=== PATIENT | female | born 1940 | race Caucasian/White ===

== ENCOUNTER 2018-02-01 11:43 | Emergency (ER) | payer MEDICARE, OTHER ==
[2018-02-01 13:09] VITALS: BP 156/79
[2018-02-01 13:17] LABS: CHLORIDE,CL 103 mmol/L (98-107); SODIUM,NA 142 mmol/L (136-145)
--- NOTE | 2018-02-01 13:29 | EDM.PDOC ---
ED HPI GENERAL MEDICAL PROBLEM - General Chief Complaint: General Stated Complaint: neck pain Time Seen by Provider: 02/01/18 12:15 Source of Information: Reports: Patient, Other (Regular provider) History Limitations: Reports: No Limitations - History of Present Illness INITIAL COMMENTS - FREE TEXT/NARRATIVE: Patient came to the ER after she briefly felt off-balance while trying to get out of the car by their bank. She felt like she wanted to "turn in a [place]" for a few seconds then sensation went away. Has had chronic neck/occipital pain for several months and that was acting up around the same time. Complains of worsening neck pain/tightness. No other changes. After speaking with the patient, and subsequently her primary provider, patient has had a very extensive workup regarding the neck pain. Work up has included head CT, neck MRI, as well as referral to Neuro at [place] and a pain clinic. She has had no specific unusual findings. Had brief relief of pain from injection at pain clinic, and from oral prednisone. Pain however quickly returned. Chiropractic manipulation has been of no help. No other acute changes. Pain is essentially the same as it has been. In past it was usually one sided, but now it is on both sides of the neck. No numbness/tingling/weakness of limbs. No trauma history prior to pain starting. No dizziness/visual changes. No other acute changes/complaints. Patient unable to remember any of her medications. Unable to tell us if she took her meds this morning. Primary provider does have concerns regarding onset of cognitive impairment. Treatments LITIGATION COORDINATOR: Reports: Acetaminophen Neck Pain Score (Numeric/FACES): 9 - Related Data Allergies Allergy/AdvReac Type Severity Reaction Status Date / Time No Known Allergies Allergy Verified 03/06/15 07:29 Home Meds: Home Meds Aspirin [Adult Low Dose Aspirin EC] 81 mg PO DAILY 02/01/18 [History] Cholecalciferol (Vitamin D3) [Vitamin D3] 800 units PO DAILY 02/01/18 [History] Cyclobenzaprine [Flexeril] 10 mg PO TID PRN 02/01/18 [History] Gabapentin [Neurontin] 200 mg PO TID 02/01/18 [History] Insulin Detemir [Levemir] 38 unit SUBCUT DAILY 02/01/18 [History] Magnesium Glycinate [Mag Glycinate] 200 mg PO DAILY #60 tablet 02/01/18 [Rx] Rosuvastatin [Crestor] 20 mg PO DAILY 02/01/18 [History] Vit C/Vit E Ac/Lut/Mineral 1 [Prosight with Lutein] 1 cap PO DAILY 02/01/18 [ History] Vitamin D3/Vitamin K2 [D3 + K2 Dots 1,000 Unit] 2 each PO DAILY #60 tab.rapdis 02/01/18 [Rx] Past Medical History HEENT History: Reports: Impaired Vision Neurological History: Reports: Migraines Endocrine/Metabolic History: Reports: Diabetes, Type II - Past Surgical History HEENT Surgical History: Reports: Tonsillectomy Neurological Surgical History: Reports: Vertebroplasty Other Neurological Surgeries/Procedures: 2012 Social & Family History - Family History Family Medical History: Noncontributory - Tobacco Use Smoking Status *Q: Never Smoker Second Hand Smoke Exposure: No - Caffeine Use Caffeine Use: Reports: Coffee - Alcohol Use Days Per Week of Alcohol Use: 0 - Recreational Drug Use Recreational Drug Use: No ED ROS GENERAL - Review of Systems Review Of Systems: See Below Constitutional: Reports: No Symptoms HEENT: Reports: No Symptoms. Denies: Ear Pain, Vertigo, Vision Change Respiratory: Reports: No Symptoms Cardiovascular: Reports: No Symptoms. Denies: Lightheadedness GI/Abdominal: Reports: No Symptoms : Reports: No Symptoms Musculoskeletal: Reports: Neck Pain Skin: Reports: No Symptoms Neurological: Reports: Difficulty Walking (per HPI). Denies: Dizziness, Numbness, Paresthesia, Seizure, Syncope, Tingling, Tremors, Trouble Speaking, Weakness, Change in Speech Psychiatric: Reports: No Symptoms Hematologic/Lymphatic: Reports: No Symptoms ED EXAM, GENERAL - Physical Exam Exam: See Below Exam Limited By: No Limitations General Appearance: Alert, WD/WN, No Apparent Distress Eye Exam: Bilateral Eye: EOMI, PERRL Ears: Normal External Exam, Normal TMs Nose: No: Nasal Deformity, Nasal Swelling, Nasal Drainage Throat/Mouth: Normal Lips, Normal Voice, No Airway Compromise. No: Normal Inspection Head: Atraumatic, Normocephalic Neck: Supple, Full Range of Motion, Tender Lateral (right posterior neck muscles (tighness noted)). No: Lymphadenopathy (L), Lymphadenopathy (R), Tender Midline Respiratory/Chest: No Respiratory Distress, Lungs Clear, Normal Breath Sounds, No Accessory Muscle Use Cardiovascular: Regular Rate, Rhythm, No Murmur Peripheral Pulses: 2+: Radial (L), Radial (R) GI/Abdominal: Soft, Non-Tender (Female) Exam: Deferred Rectal (Female) Exam: Deferred Back Exam: No: CVA Tenderness (L), Paraspinal Tenderness, Vertebral Tenderness Extremities: Normal Range of Motion (for age), Non-Tender, Normal Capillary Refill Neurological: Alert, Oriented, CN II-XII Intact, Normal Cognition, Normal Reflexes, Other (Equal strength limbs. ) Psychiatric: Normal Affect, Normal Mood Skin Exam: Warm, Dry, Intact, Normal Color Course - Vital Signs Last Recorded V/S: Last Vital Signs Temp 36.5 C 02/01/18 11:59 Pulse 82 02/01/18 13:08 Resp 18 02/01/18 13:08 BP 156/79 H 02/01/18 13:08 Pulse Ox 100 02/01/18 13:08 - Orders/Labs/Meds Orders: Active Orders 24 hr Category Date Time Status COMPREHENSIVE METABOLIC PN,CMP [CHEM] Stat Lab 02/01/18 12:16 Ordered MG [MAGNESIUM] [CHEM] Stat Lab 02/01/18 12:16 Ordered VITAMIN B12 [CHEM] Stat Lab 02/01/18 12:16 Ordered VITAMIN D,25-HYDROXY [CHEM] Stat Lab 02/01/18 12:16 Ordered Labs: Laboratory Tests 02/01/18 02/01/18 02/01/18 Range/Units 12:25 12:25 12:40 WBC 5.8 (4.0-10.2) K/uL RBC 4.30 (3.77-5.09) M/uL Hgb 12.0 (11.7-15.5) g/dL Hct 36.7 (34.0-46.0) % MCV 85.3 D (84.0-98.0) fL MCH 27.9 L (28.2-33.3) pg MCHC 32.7 (31.7-36.0) g/dL RDW 14.5 H (11.2-14.1) % Plt Count 279 (150-350) K/uL Neut % (Auto) 56.5 (45.0-80.0) % Lymph % (Auto) 34.8 (10.0-50.0) % [place] % (Auto) 6.3 (2.0-14.0) % Eos % (Auto) 1.7 (0.0-5.0) % Baso % (Auto) 0.7 (0.0-2.0) % Neut # (Auto) 3.29 (1.40-7.00) K/uL Lymph # (Auto) 2.03 (0.50-3.50) K/uL [place] # (Auto) 0.37 (0.00-1.00) K/uL Eos # (Auto) 0.10 (0.00-0.50) K/uL Baso # (Auto) 0.04 (0.00-0.20) K/uL Sodium 142 (136-145) mmol/L Potassium 3.9 (3.5-5.1) mmol/L Chloride 103 (98-107) mmol/L Carbon Dioxide 25.5 (21.0-32.0) mmol/L BUN 14 (7-18) mg/dL Creatinine 0.56 (0.51-1.17) mg/dL Est Cr Clr Drug Dosing 72.65 mL/min Estimated GFR (MDRD) > 60 mL/min Glucose 197 H (74-106) mg/dL Calcium 10.1 (8.5-10.1) mg/dL Magnesium 1.8 (1.8-2.4) mg/dL Total Bilirubin 0.2 (0.2-1.0) mg/dL AST 11 L (15-37) U/L ALT 14 (12-78) U/L Alkaline Phosphatase 125 H (46-116) IU/L Total Protein 8.1 (6.4-8.2) g/dL Albumin 3.0 L (3.4-5.0) g/dL Vitamin B12 660 (193-986) pg/mL Specimen Type Urinblad Urine Color Yellow Urine Appearance Clear Urine pH 7.0 (5.0-9.0) Ur Specific [place] 1.020 (1.005-1.030) Urine Protein Negative (NEGATIVE) mg/dL Urine Glucose (UA) Negative (NEGATIVE) mg/dL Urine Ketones Negative (NEGATIVE) mg/dL Urine Occult Blood Negative (NEGATIVE) Urine Nitrite Negative (NEGATIVE) Urine Bilirubin Negative (NEGATIVE) Urine Urobilinogen 0.2 (0.2-1.0) E.U./dL Ur Leukocyte Esterase Negative (NEGATIVE) Urine RBC 0-5 /HPF Urine WBC 0-5 /HPF Ur Epithelial Cells Moderate H /LPF Urine Bacteria Few (NONE TO FEW) /HPF - Re-Assessments/Exams Free Text/Narrative Re-Assessment/Exam: 02/01/18 15:15 Glucose 195 Labs overall unremarkable otherwise. Non-focal exam except for increased muscle tension right posterior neck muscles. Patient's daughter (Johanny) called and expressed significant concern that her mother has not had an MRI of her head. She wonders if there is something there that the CT did not show. Says her mother has "high" pain tolerance and this is unusual for her to be in pain this long. Also notes that her mother sounds less mentally clear than usual. States that patient usually remembers her medication names and dosing regimen. She insisted that her mother should go to [place] and get MRI of head to look for other pathology. It was explained to the patient's daughter that there was no indication for emergent transport by EMS given that her mother was currently without complaint. Pain had improved (pain free at time of discharge) and patient literally danced a jig for us to show us that she was feeling better. Daughter then spoke to her mother, then her father , at great length on the cell phone. At the calls conclusion, had agreed to take the patient to [facility] in [place] for further evaluation that would include MRI of head. Call placed to [facility]. from the ER accepted the patient and was given background concerning patient's complaint and recent history. Patient was transported by family (son who lives locally was parcel post truck driver) private vehicle to [facility] after discharge from our ER. She was back to baseline per self report at that time. Departure - Departure Time of Disposition: 13:27 Disposition: DC/Tfer to Acute Hospital 02 Condition: Good Clinical Impression: Neck pain, bilateral - Discharge Information Prescriptions: Magnesium Glycinate [Mag Glycinate] 200 mg PO DAILY #60 tablet Vitamin D3/Vitamin K2 [D3 + K2 Dots 1,000 Unit] 2 each PO DAILY #60 tab.rapdis Forms: ED Department Discharge Additional Instructions: Drive directed to [facility] ER. They are expecting you. If you notice any problems/worsening symptoms, call 911 to have an ambulance dispatched to your location. - My Orders Last 24 Hours: My Active Orders 02/01/18 12:16 COMPREHENSIVE METABOLIC PN,CMP [CHEM] Stat MG [MAGNESIUM] [CHEM] Stat VITAMIN B12 [CHEM] Stat VITAMIN D,25-HYDROXY [CHEM] Stat - Assessment/Plan Last 24 Hours: My Active Orders 02/01/18 12:16 COMPREHENSIVE METABOLIC PN,CMP [CHEM] Stat MG [MAGNESIUM] [CHEM] Stat VITAMIN B12 [CHEM] Stat VITAMIN D,25-HYDROXY [CHEM] Stat
== END 2018-02-01 13:56 ==
LOC: LL.ED 11:43
DX: M54.2 Cervicalgia (principal); E11.9 Type 2 diabetes mellitus without complications; Z79.82 Long term (current) use of aspirin; Z79.4 Long term (current) use of insulin; Z79.899 Other long term (current) drug therapy
CPT/HCPCS: 36415; 80053; 81001; 82607; 83735; 85025; 99284